=== PATIENT | female | born 1985 | race Two or more races ===

== ENCOUNTER 2019-03-09 10:47 | Emergency (ER) | payer BC ==
[2019-03-09] MEDS ORDERED: Sodium Chloride 0.9% 10 ML Syringe FLUSH PRN (11:19)
[2019-03-09] MEDS ORDERED: Ondansetron 4 MG/2 ML SDV IVPUSH ONE (11:20)
[2019-03-09] MEDS ORDERED: diphenhydrAMINE 50 MG/ML SDV IVPUSH ONE (11:20)
[2019-03-09] MEDS ORDERED: Dexamethasone 4 MG/ML SDV IVPUSH ONE (11:20)
[2019-03-09] MEDS ORDERED: Ketorolac 30 MG/ML SDV IVPUSH ONE (11:20)
--- NOTE | 2019-03-09 12:00 | EDM.PDOC ---
ED HPI GENERAL MEDICAL PROBLEM - General Chief Complaint: Headache Stated Complaint: MIGRAINE X 3 DAYS Time Seen by Provider: 03/09/19 11:09 Source of Information: Reports: Patient History Limitations: Reports: No Limitations - History of Present Illness INITIAL COMMENTS - FREE TEXT/NARRATIVE: The patient presents with a headache. She has a history of migraines. She tried maxolt and fiorocet and that did not help. She has no numbness or weakness. She has nausea and vomiting. This has been going on for about 3 days. The pain is on right right side of her head. Onset: Gradual Duration: Day(s): (3) Location: Reports: Head Quality: Reports: Sharp Severity: Moderate Improves with: Reports: None Worsens with: Reports: None Associated Symptoms: Reports: Headaches, Nausea/Vomiting. Denies: Chest Pain, Cough, Fever/Chills, Shortness of Breath Right Temporal Headache Pain Score (Numeric/FACES): 8 - Related Data Allergies Allergy/AdvReac Type Severity Reaction Status Date / Time fentanyl Allergy Chest Pain Verified 03/09/19 10:58 levofloxacin [From Levaquin] Allergy Hives Verified 03/09/19 10:58 metoclopramide [From Reglan] Allergy Anxiety Verified 03/09/19 10:58 morphine Allergy Headache Verified 03/09/19 10:58 promethazine [From Phenergan] Allergy Anxiety Verified 03/09/19 10:58 sumatriptan [From Imitrex] Allergy Chest Pain Verified 03/09/19 10:58 topiramate [From Topamax] Allergy Fainting Verified 03/09/19 10:58 Home Meds: Home Meds Acetaminophen/Butalbital/Caff [Fioricet 325-50-40 MG] 1 tab PO ASDIRECTED PRN [History] FLUoxetine [PROzac] 20 mg PO DAILY 06/13/18 [History] Magnesium Oxide [Magnesium] 1,000 mg PO DAILY 06/13/18 [History] Multivitamin [Multi-Day Vitamins] 1 tab PO DAILY 06/13/18 [History] Naproxen Sodium 600 mg PO ASDIRECTED 06/13/18 [History] Rizatriptan Benzoate [Rizatriptan] 10 mg PO ASDIRECTED PRN 06/13/18 [History] hydrOXYzine HCl [Atarax] 25 mg PO ASDIRECTED PRN 06/13/18 [History] Past Medical History HEENT History: Reports: None Cardiovascular History: Reports: None Respiratory History: Reports: None Gastrointestinal History: Reports: None Genitourinary History: Reports: Other (See Below) Other Genitourinary History: chronic ovarian cysts 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 Musculoskeletal History: Reports: None Neurological History: Reports: Migraines Psychiatric History: Reports: Depression Endocrine/Metabolic History: Reports: None Hematologic History: Reports: Anemia Immunologic History: Reports: None Oncologic (Cancer) History: Reports: None Dermatologic History: Reports: None - Infectious Disease History Infectious Disease History: Reports: None - Past Surgical History Head Surgeries/Procedures: Reports: None GI Surgical History: Reports: Other (See Below) Other GI Surgeries/Procedures: laparoscopy Female Surgical History: Reports: Other (See Below) Other Female Surgeries/Procedures: ovarian cysts, PMDD Social & Family History - Family History Family Medical History: Noncontributory - Tobacco Use Smoking Status *Q: Never Smoker - Caffeine Use Caffeine Use: Reports: Coffee, Soda - Recreational Drug Use Recreational Drug Use: No ED ROS GENERAL - Review of Systems Review Of Systems: See Below Constitutional: Reports: No Symptoms HEENT: Reports: No Symptoms Respiratory: Reports: No Symptoms Cardiovascular: Reports: No Symptoms Endocrine: Reports: No Symptoms GI/Abdominal: Reports: Nausea, Vomiting : Reports: No Symptoms Musculoskeletal: Reports: No Symptoms Skin: Reports: No Symptoms Neurological: Reports: Headache - Physical Exam Exam: See Below Exam Limited By: No Limitations General Appearance: Alert, No Apparent Distress Ears: Normal External Exam Nose: Normal Inspection Head Exam: Atraumatic, Normocephalic Neck: Normal Inspection Respiratory/Chest: No Respiratory Distress, Lungs Clear, Normal Breath Sounds Cardiovascular: Regular Rate, Rhythm, No Edema, No Murmur GI/Abdominal: Soft, Non-Tender, No Organomegaly, No Mass Neuro Exam (Abbreviated): Alert, Oriented, No Motor/Sensory Deficits Back Exam: Normal Inspection Extremities: Normal Inspection Course - Vital Signs Last Recorded V/S: Last Vital Signs Temp 98.1 F 03/09/19 10:54 Pulse 81 03/09/19 10:54 Resp 16 03/09/19 10:54 BP Pulse Ox 97 03/09/19 10:54 - Orders/Labs/Meds Orders: Active Orders 24 hr Category Date Time Status Peripheral IV Care [RC] . DIRECTED Care 03/09/19 11:19 Active Sodium Chloride 0.9% [Saline Flush] Med 03/09/19 11:19 Active 10 ml FLUSH ASDIRECTED PRN Peripheral IV Insertion Adult [OM.PC] Routine Oth 03/09/19 11:19 Ordered Medication Orders Sodium Chloride (Saline Flush) 10 ml FLUSH ASDIRECTED PRN PRN Reason: Keep Vein Open Last Admin: 03/09/19 11:30 Dose: 10 ml Meds: Medications Generic Name Dose Route Start Last Admin Trade Name Freq PRN Reason Stop Dose Admin Sodium Chloride 10 ml 03/09/19 11:19 03/09/19 11:30 Saline Flush FLUSH 10 ml ASDIRECTED PRN Administration Keep Vein Open Discontinued Medications Generic Name Dose Route Start Last Admin Trade Name Freq PRN Reason Stop Dose Admin Dexamethasone 4 mg 03/09/19 11:20 03/09/19 11:37 Dexamethasone IVPUSH 03/09/19 11:21 4 mg ONETIME ONE Administration Diphenhydramine HCl 50 mg 03/09/19 11:20 03/09/19 11:35 Benadryl IVPUSH 03/09/19 11:21 50 mg ONETIME ONE Administration Ketorolac Tromethamine 30 mg 03/09/19 11:20 03/09/19 11:33 Toradol IVPUSH 03/09/19 11:21 30 mg ONETIME ONE Administration Ondansetron HCl 4 mg 03/09/19 11:20 03/09/19 11:31 Zofran IVPUSH 03/09/19 11:21 4 mg ONETIME ONE Administration - Re-Assessments/Exams Free Text/Narrative Re-Assessment/Exam: 03/09/19 12:01 I ordered an IV saline lock, toradol 30mg IV, benadryl 50mg IV, zofran 4mg IV and decadron 4mg IV. 03/09/19 12:47 She is feeling much better and would like to go now. I will discharge her home. Departure - Departure Time of Disposition: 12:50 Disposition: Home, Self-Care 01 Condition: Good Clinical Impression: Migraine - Discharge Information *PRESCRIPTION DRUG MONITORING PROGRAM REVIEWED*: No *COPY OF PRESCRIPTION DRUG MONITORING REPORT IN PATIENT OLIVA: No Referrals: Xavier Anderson MD [Primary Care Provider] - Forms: ED Department Discharge Additional Instructions: Go home and rest and return if you are worse. - My Orders Last 24 Hours: My Active Orders 03/09/19 11:19 Peripheral IV Care [RC] . DIRECTED Sodium Chloride 0.9% [Saline Flush] 10 ml FLUSH ASDIRECTED PRN Peripheral IV Insertion Adult [OM.PC] Routine - Assessment/Plan Last 24 Hours: My Active Orders 03/09/19 11:19 Peripheral IV Care [RC] . DIRECTED Sodium Chloride 0.9% [Saline Flush] 10 ml FLUSH ASDIRECTED PRN Peripheral IV Insertion Adult [OM.PC] Routine
== END 2019-03-09 13:05 | disposition home or self-care (01) ==
LOC: JD.ED 10:47
DX: G43.909 Migraine, unspecified, not intractable, without status migrainosus (principal); F32.9 Major depressive disorder, single episode, unspecified; Z88.1 Allergy status to other antibiotic agents; Z88.5 Allergy status to narcotic agent; Z88.8 Allergy status to other drugs, medicaments and biological substances; Z79.899 Other long term (current) drug therapy
CPT/HCPCS: 96374; 96375; 99283; J1100; J1200; J1885; J2405; 99284

== ENCOUNTER 2019-03-17 09:50 | Emergency (ER) | payer BC, MEDICARE ==
[2019-03-17] MEDS ORDERED: Sodium Chloride 0.9% 10 ML Syringe FLUSH PRN (10:47)
[2019-03-17] MEDS ORDERED: Sodium Chloride 0.9% 1,000 ML IV ONE (10:47)
[2019-03-17] MEDS ORDERED: Dexamethasone 4 MG/ML SDV IVPUSH ONE (10:47)
[2019-03-17] MEDS ORDERED: Ketorolac 30 MG/ML SDV IVPUSH ONE (10:48)
[2019-03-17] MEDS ORDERED: diphenhydrAMINE 50 MG/ML SDV IVPUSH ONE (10:48)
[2019-03-17] MEDS ORDERED: Ondansetron 4 MG/2 ML SDV IVPUSH ONE (10:48)
--- NOTE | 2019-03-17 12:45 | EDM.PDOC ---
ED HPI GENERAL MEDICAL PROBLEM - General Chief Complaint: Headache Stated Complaint: HEADACHE Time Seen by Provider: 03/17/19 10:36 Source of Information: Reports: Patient History Limitations: Reports: No Limitations - History of Present Illness INITIAL COMMENTS - FREE TEXT/NARRATIVE: The patient presents with a migraine headache. She has a history of them. She was seen here over a week ago and was given medications for it. The pain never really went away. She says the past couple days the pain got worse. She has no numbness or weakness. Onset: Gradual Duration: Day(s): Location: Reports: Head Quality: Reports: Ache Severity: Severe Improves with: Reports: None Worsens with: Reports: None Associated Symptoms: Reports: Headaches, Nausea/Vomiting. Denies: Chest Pain, Cough, Fever/Chills, Shortness of Breath - Related Data Allergies Allergy/AdvReac Type Severity Reaction Status Date / Time fentanyl Allergy Chest Pain Verified 03/09/19 10:58 levofloxacin [From Levaquin] Allergy Hives Verified 03/09/19 10:58 metoclopramide [From Reglan] Allergy Anxiety Verified 03/09/19 10:58 morphine Allergy Headache Verified 03/09/19 10:58 promethazine [From Phenergan] Allergy Anxiety Verified 03/09/19 10:58 sumatriptan [From Imitrex] Allergy Chest Pain Verified 03/09/19 10:58 topiramate [From Topamax] Allergy Fainting Verified 03/09/19 10:58 Home Meds: Home Meds Acetaminophen/Butalbital/Caff [Fioricet 325-50-40 MG] 1 tab PO ASDIRECTED PRN [History] FLUoxetine [PROzac] 20 mg PO DAILY 06/13/18 [History] Magnesium Oxide [Magnesium] 1,000 mg PO DAILY 06/13/18 [History] Multivitamin [Multi-Day Vitamins] 1 tab PO DAILY 06/13/18 [History] Naproxen Sodium 600 mg PO ASDIRECTED 06/13/18 [History] Rizatriptan Benzoate [Rizatriptan] 10 mg PO ASDIRECTED PRN 06/13/18 [History] hydrOXYzine HCl [Atarax] 25 mg PO ASDIRECTED PRN 06/13/18 [History] Past Medical History HEENT History: Reports: None Cardiovascular History: Reports: None Respiratory History: Reports: None Gastrointestinal History: Reports: None Genitourinary History: Reports: Other (See Below) Other Genitourinary History: chronic ovarian cysts [employer]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 Musculoskeletal History: Reports: None Neurological History: Reports: Migraines Psychiatric History: Reports: Depression Endocrine/Metabolic History: Reports: None Hematologic History: Reports: Anemia Immunologic History: Reports: None Oncologic (Cancer) History: Reports: None Dermatologic History: Reports: None - Infectious Disease History Infectious Disease History: Reports: None - Past Surgical History Head Surgeries/Procedures: Reports: None GI Surgical History: Reports: Other (See Below) Other GI Surgeries/Procedures: laparoscopy Female Surgical History: Reports: Other (See Below) Other Female Surgeries/Procedures: ovarian cysts, PMDD Social & Family History - Family History Family Medical History: Noncontributory - Tobacco Use Smoking Status *Q: Never Smoker - Caffeine Use Caffeine Use: Reports: None - Recreational Drug Use Recreational Drug Use: No ED ROS GENERAL - Review of Systems Review Of Systems: See Below Constitutional: Reports: No Symptoms HEENT: Reports: No Symptoms Respiratory: Reports: No Symptoms Cardiovascular: Reports: No Symptoms Endocrine: Reports: No Symptoms GI/Abdominal: Reports: No Symptoms : Reports: No Symptoms Musculoskeletal: Reports: No Symptoms Skin: Reports: No Symptoms Neurological: Reports: Headache - Physical Exam Exam: See Below Exam Limited By: No Limitations General Appearance: Alert, No Apparent Distress Ears: Normal External Exam Nose: Normal Inspection Head Exam: Atraumatic, Normocephalic Neck: Normal Inspection Respiratory/Chest: No Respiratory Distress, Lungs Clear, Normal Breath Sounds Cardiovascular: Regular Rate, Rhythm, No Edema, No Murmur GI/Abdominal: Soft, Non-Tender, No Organomegaly, No Mass Rectal (Female) Exam: Normal Exam Neuro Exam (Abbreviated): Alert, Oriented, No Motor/Sensory Deficits Course - Vital Signs Last Recorded V/S: Last Vital Signs Temp 98.4 F 03/17/19 10:45 Pulse 76 03/17/19 10:45 Resp 16 03/17/19 10:45 BP 130/87 03/17/19 10:45 Pulse Ox 100 03/17/19 10:45 - Orders/Labs/Meds Orders: Active Orders 24 hr Category Date Time Status Peripheral IV Care [RC] . DIRECTED Care 03/17/19 10:47 Active Sodium Chloride 0.9% [Saline Flush] Med 03/17/19 10:47 Active 10 ml FLUSH ASDIRECTED PRN Peripheral IV Insertion Adult [OM.PC] Routine Oth 03/17/19 10:47 Ordered Medication Orders Sodium Chloride (Saline Flush) 10 ml FLUSH ASDIRECTED PRN PRN Reason: Keep Vein Open Last Admin: 03/17/19 11:02 Dose: 10 ml Meds: Medications Generic Name Dose Route Start Last Admin Trade Name Freq PRN Reason Stop Dose Admin Sodium Chloride 10 ml 03/17/19 10:47 03/17/19 11:02 Saline Flush FLUSH 10 ml ASDIRECTED PRN Administration Keep Vein Open Discontinued Medications Generic Name Dose Route Start Last Admin Trade Name Freq PRN Reason Stop Dose Admin Dexamethasone 4 mg 03/17/19 10:47 03/17/19 11:04 Dexamethasone IVPUSH 03/17/19 10:48 4 mg ONETIME ONE Administration Diphenhydramine HCl 50 mg 03/17/19 10:48 03/17/19 11:03 Benadryl IVPUSH 03/17/19 10:49 50 mg ONETIME ONE Administration Sodium Chloride 1,000 mls @ 1,000 mls/hr 03/17/19 10:47 03/17/19 11:01 Normal Saline IV 03/17/19 11:46 1,000 mls/hr ONETIME ONE Administration Ketorolac Tromethamine 30 mg 03/17/19 10:48 03/17/19 11:03 Toradol IVPUSH 03/17/19 10:49 30 mg ONETIME ONE Administration Ondansetron HCl 4 mg 03/17/19 10:48 03/17/19 11:06 Zofran IVPUSH 03/17/19 10:49 4 mg ONETIME ONE Administration - Re-Assessments/Exams Free Text/Narrative Re-Assessment/Exam: 03/17/19 12:48 I ordered an IV NS 1L bolus, decadron 4mg IV, toradol 30mg IV, benadryl 50mg IV , and zofran 4mg IV. She feels better. I will discharge her home. Departure - Departure Time of Disposition: 12:48 Disposition: Home, Self-Care 01 Condition: Good Clinical Impression: Migraine - Discharge Information *PRESCRIPTION DRUG MONITORING PROGRAM REVIEWED*: No *COPY OF PRESCRIPTION DRUG MONITORING REPORT IN PATIENT OLIVA: No Referrals: PCP,Not In Area [Primary Care Provider] - Forms: ED Department Discharge Additional Instructions: Go home and rest. Please return if you are worse. - My Orders Last 24 Hours: My Active Orders 03/17/19 10:47 Peripheral IV Care [RC] . DIRECTED Sodium Chloride 0.9% [Saline Flush] 10 ml FLUSH ASDIRECTED PRN Peripheral IV Insertion Adult [OM.PC] Routine - Assessment/Plan Last 24 Hours: My Active Orders 03/17/19 10:47 Peripheral IV Care [RC] . DIRECTED Sodium Chloride 0.9% [Saline Flush] 10 ml FLUSH ASDIRECTED PRN Peripheral IV Insertion Adult [OM.PC] Routine
== END 2019-03-17 13:15 | disposition home or self-care (01) ==
LOC: JD.ED 09:50
DX: G43.909 Migraine, unspecified, not intractable, without status migrainosus (principal); F32.9 Major depressive disorder, single episode, unspecified; Z79.899 Other long term (current) drug therapy; Z88.5 Allergy status to narcotic agent; Z88.1 Allergy status to other antibiotic agents; Z88.8 Allergy status to other drugs, medicaments and biological substances
CPT/HCPCS: 96361; 96374; 96375; 99283; J1100; J1200; J1885; J2405; J7040

== ENCOUNTER 2019-04-12 03:09 | Emergency (ER) | payer BC, MEDICARE ==
[2019-04-12] MEDS ORDERED: diphenhydrAMINE 50 MG/ML SDV IVPUSH ONE (07:25)
[2019-04-12] MEDS ORDERED: Sodium Chloride 0.9% 10 ML Syringe FLUSH PRN (07:26)
[2019-04-12] MEDS ORDERED: Dexamethasone 4 MG/ML SDV IVPUSH ONE (07:29)
[2019-04-12] MEDS ORDERED: Ketorolac 30 MG/ML SDV IVPUSH SCH (07:30)
[2019-04-12] MEDS ORDERED: Sodium Chloride 0.9% 1,000 ML IV SCH (07:30)
--- NOTE | 2019-04-12 09:08 | EDM.PDOC ---
ED HPI GENERAL MEDICAL PROBLEM - General Chief Complaint: Headache Stated Complaint: HEADACHE Time Seen by Provider: 04/12/19 07:25 Source of Information: Reports: Patient, RN Notes Reviewed - History of Present Illness INITIAL COMMENTS - FREE TEXT/NARRATIVE: 34 year old female with onset of Johnson about 5 days ago. It was better for a couple of days and than became much worse last evening and during the night. The Johnson is bilat, throbbing with some nausea, not actively vomiting at time of eval. She does have hx of migraines, this is similar. He own meds are not giving her meaningful relief. Left Temporal Headache Pain Score (Numeric/FACES): 8 - Related Data Allergies Allergy/AdvReac Type Severity Reaction Status Date / Time fentanyl Allergy Chest Pain Verified 04/12/19 05:19 levofloxacin [From Levaquin] Allergy Hives Verified 04/12/19 05:19 metoclopramide [From Reglan] Allergy Anxiety Verified 04/12/19 05:19 morphine Allergy Headache Verified 04/12/19 05:19 promethazine [From Phenergan] Allergy Anxiety Verified 04/12/19 05:19 sumatriptan [From Imitrex] Allergy Chest Pain Verified 04/12/19 05:19 topiramate [From Topamax] Allergy Fainting Verified 04/12/19 05:19 Home Meds: Home Meds Acetaminophen/Butalbital/Caff [Fioricet 325-50-40 MG] 1 tab PO ASDIRECTED PRN [History] FLUoxetine [PROzac] 20 mg PO DAILY 06/13/18 [History] Magnesium Oxide [Magnesium] 1,000 mg PO DAILY 06/13/18 [History] Multivitamin [Multi-Day Vitamins] 1 tab PO DAILY 06/13/18 [History] Naproxen Sodium 600 mg PO ASDIRECTED 06/13/18 [History] Rizatriptan Benzoate [Rizatriptan] 10 mg PO ASDIRECTED PRN 06/13/18 [History] hydrOXYzine HCl [Atarax] 25 mg PO ASDIRECTED PRN 06/13/18 [History] Past Medical History HEENT History: Reports: None Cardiovascular History: Reports: None Respiratory History: Reports: None Gastrointestinal History: Reports: None Genitourinary History: Reports: Other (See Below) Other Genitourinary History: chronic ovarian cysts 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 Musculoskeletal History: Reports: None Neurological History: Reports: Migraines Psychiatric History: Reports: Depression Endocrine/Metabolic History: Reports: None Hematologic History: Reports: Anemia Immunologic History: Reports: None Oncologic (Cancer) History: Reports: None Dermatologic History: Reports: None - Infectious Disease History Infectious Disease History: Reports: None - Past Surgical History Head Surgeries/Procedures: Reports: None GI Surgical History: Reports: Other (See Below) Other GI Surgeries/Procedures: laparoscopy Female Surgical History: Reports: Other (See Below) Other Female Surgeries/Procedures: ovarian cysts, PMDD Social & Family History - Family History Family Medical History: Noncontributory - Tobacco Use Smoking Status *Q: Never Smoker - Caffeine Use Caffeine Use: Reports: None - Recreational Drug Use Recreational Drug Use: No ED ROS GENERAL - Review of Systems Review Of Systems: See Below Constitutional: Denies: Fever, Chills HEENT: Denies: Rhinitis, Sinus Problem, Throat Pain Respiratory: Denies: Shortness of Breath Cardiovascular: Denies: Chest Pain GI/Abdominal: Reports: Decreased Appetite, Nausea. Denies: Abdominal Pain Musculoskeletal: Reports: Neck Pain (mild) Neurological: Reports: Headache. Denies: Numbness, Tingling, Trouble Speaking, Difficulty Walking, Weakness - Physical Exam Exam: See Below General Appearance: Alert, Moderate Distress Eye Exam: Bilateral Eye: PERRL Throat/Mouth: Normal Inspection, Normal Oropharynx Head Exam: Atraumatic. No: Facial Swelling Neck: Supple, Full Range of Motion Respiratory/Chest: No Respiratory Distress, Lungs Clear, Normal Breath Sounds Cardiovascular: Regular Rate, Rhythm GI/Abdominal: Soft, Non-Tender Neuro Exam (Abbreviated): Alert, Oriented, No Motor/Sensory Deficits Extremities: Normal Inspection, Normal Range of Motion Skin Exam: Warm, Dry, Normal Color Course - Vital Signs Last Recorded V/S: Last Vital Signs Temp 98.5 F 04/12/19 07:58 Pulse 90 04/12/19 09:00 Resp 16 04/12/19 09:00 BP 109/72 04/12/19 09:00 Pulse Ox 99 04/12/19 09:00 - Orders/Labs/Meds Orders: Active Orders 24 hr Category Date Time Status Peripheral IV Care [RC] . DIRECTED Care 04/12/19 07:28 Active Peripheral IV Insertion Adult [OM.PC] Stat Oth 04/12/19 07:25 Ordered Meds: Medications Discontinued Medications Generic Name Dose Route Start Last Admin Trade Name Yirs PRN Reason Stop Dose Admin Dexamethasone 8 mg 04/12/19 07:29 04/12/19 07:50 Dexamethasone IVPUSH 04/12/19 07:30 8 mg ONETIME ONE Administration Diphenhydramine HCl 50 mg 04/12/19 07:25 04/12/19 07:45 Benadryl IVPUSH 04/12/19 07:26 50 mg ONETIME ONE Administration Sodium Chloride 1,000 mls @ 999 mls/hr 04/12/19 07:30 04/12/19 07:49 Normal Saline IV 999 mls/hr ONETIME KIERRA Administration Ketorolac Tromethamine 30 mg 04/12/19 07:30 04/12/19 07:47 Toradol IVPUSH 30 mg ONETIME KIERRA Administration Sodium Chloride 10 ml 04/12/19 07:26 04/12/19 07:45 Saline Flush FLUSH 10 ml ASDIRECTED PRN Administration Keep Vein Open - Re-Assessments/Exams Free Text/Narrative Re-Assessment/Exam: 04/12/19 11:06 Pt and moderate relief from IV fluid and meds given, offered further treatment but patient wants to go home and work with her own meds. Comfortable to go home at time of discharge. Departure - Departure Time of Disposition: 09:06 Disposition: Home, Self-Care 01 Condition: Fair Clinical Impression: Migraine - Discharge Information Instructions: Migraine Headache, [id number] Referrals: PCP,Not In Area [Primary Care Provider] - Forms: ED Department Discharge Additional Instructions: Rest, you have been given sedating medication while here in the ED so do not drive for the next 8 to 10 hours. Continue your current meds as prescribed. Follow up clinic as needed, return to ED as needed. - My Orders Last 24 Hours: My Active Orders 04/12/19 07:25 Peripheral IV Insertion Adult [OM.PC] Stat 04/12/19 07:28 Peripheral IV Care [RC] . DIRECTED - Assessment/Plan Last 24 Hours: My Active Orders 04/12/19 07:25 Peripheral IV Insertion Adult [OM.PC] Stat 04/12/19 07:28 Peripheral IV Care [RC] . DIRECTED
== END 2019-04-12 09:15 | disposition home or self-care (01) ==
LOC: JD.ED 03:09
DX: G43.909 Migraine, unspecified, not intractable, without status migrainosus (principal); F32.9 Major depressive disorder, single episode, unspecified; Z88.5 Allergy status to narcotic agent; Z88.8 Allergy status to other drugs, medicaments and biological substances; Z88.1 Allergy status to other antibiotic agents; Z79.899 Other long term (current) drug therapy
CPT/HCPCS: 96361; 96374; 96375; 99283; J1100; J1200; J1885; J7040

== ENCOUNTER 2019-08-22 10:46 | Emergency (ER) | payer BC, MEDICARE ==
[2019-08-22] MEDS ORDERED: Dexamethasone 4 MG/ML SDV IVPUSH ONE (11:04)
[2019-08-22] MEDS ORDERED: Sodium Chloride 0.9% 10 ML Syringe FLUSH PRN (11:04)
[2019-08-22] MEDS ORDERED: Ondansetron 4 MG/2 ML SDV IVPUSH ONE (11:04)
[2019-08-22] MEDS ORDERED: Ketorolac 30 MG/ML SDV IVPUSH ONE (11:05)
[2019-08-22] MEDS ORDERED: Sodium Chloride 0.9% 1,000 ML IV ONE (11:28)
--- NOTE | 2019-08-22 11:29 | EDM.PDOC ---
ED HPI GENERAL MEDICAL PROBLEM - General Chief Complaint: Headache Stated Complaint: MIGRAINE Time Seen by Provider: 08/22/19 10:59 Source of Information: Reports: Patient History Limitations: Reports: No Limitations - History of Present Illness INITIAL COMMENTS - FREE TEXT/NARRATIVE: The patient presents with a migraine. She has a history of migraines. She woke up with this on . She tried her maxzolt and fioricet with codeine. It did not help. She has photophobia, nausea and vomiting. She has no numbness or weakness. She has no fever or chills. Onset: Gradual Duration: Day(s): (Since ) Location: Reports: Head Quality: Reports: Sharp Severity: Severe Improves with: Reports: None Worsens with: Reports: None Associated Symptoms: Reports: Headaches, Nausea/Vomiting. Denies: Chest Pain, Cough, Fever/Chills, Shortness of Breath Right Headache Pain Score (Numeric/FACES): 7 - Related Data Allergies Allergy/AdvReac Type Severity Reaction Status Date / Time fentanyl Allergy Chest Pain Verified 08/22/19 11:14 levofloxacin [From Levaquin] Allergy Hives Verified 08/22/19 11:14 metoclopramide [From Reglan] Allergy Anxiety Verified 08/22/19 11:14 morphine Allergy Headache Verified 08/22/19 11:14 promethazine [From Phenergan] Allergy Anxiety Verified 08/22/19 11:14 sumatriptan [From Imitrex] Allergy Chest Pain Verified 08/22/19 11:14 topiramate [From Topamax] Allergy Fainting Verified 08/22/19 11:14 Home Meds: Home Meds Magnesium Oxide [Magnesium] 500 mg PO DAILY 06/13/18 [History] Multivitamin [Multi-Day Vitamins] 1 tab PO DAILY 06/13/18 [History] Naproxen Sodium 600 mg PO ASDIRECTED 06/13/18 [History] Rizatriptan Benzoate [Rizatriptan] 10 mg PO ASDIRECTED PRN 06/13/18 [History] hydrOXYzine HCL [Atarax] 25 mg PO ASDIRECTED PRN 06/13/18 [History] DULoxetine [Cymbalta] 30 mg PO DAILY 05/08/19 [History] Propranolol [Inderal LA] 60 mg PO DAILY 05/08/19 [History] tiZANidine [Zanaflex] 4 mg PO BEDTIME 05/08/19 [History] Past Medical History HEENT History: Reports: None Other HEENT History: wears eyeglasses. Caps to front teeth. 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 No endometriosis was found. Musculoskeletal History: Reports: None Neurological History: Reports: Migraines Psychiatric History: Reports: Depression Endocrine/Metabolic History: Reports: None Hematologic History: Reports: Anemia Immunologic History: Reports: None Oncologic (Cancer) History: Reports: None Dermatologic History: Reports: None - Infectious Disease History Infectious Disease History: Reports: None - Past Surgical History Head Surgeries/Procedures: Reports: None GI Surgical History: Reports: Other (See Below) Other GI Surgeries/Procedures: laparoscopy Female Surgical History: Reports: Other (See Below) Other Female Surgeries/Procedures: ovarian cysts, PMDD Social & Family History - Family History Family Medical History: Noncontributory - Tobacco Use Smoking Status *Q: Never Smoker - Caffeine Use Caffeine Use: Reports: Coffee - Living Situation & Occupation Living situation: Reports: Occupation: Unemployed ED ROS GENERAL - Review of Systems Review Of Systems: See Below Constitutional: Reports: No Symptoms HEENT: Reports: No Symptoms Respiratory: Reports: No Symptoms Cardiovascular: Reports: No Symptoms Endocrine: Reports: No Symptoms GI/Abdominal: Reports: Nausea, Vomiting. Denies: Abdominal Pain : Reports: No Symptoms Musculoskeletal: Reports: No Symptoms - Physical Exam Exam: See Below Exam Limited By: No Limitations General Appearance: Alert, No Apparent Distress Ears: Normal External Exam Throat/Mouth: Normal Inspection Head Exam: Atraumatic, Normocephalic Neck: Normal Inspection, Supple, Non-Tender Respiratory/Chest: No Respiratory Distress, Lungs Clear, Normal Breath Sounds Cardiovascular: Regular Rate, Rhythm, No Edema, No Murmur GI/Abdominal: Soft, Non-Tender, No Organomegaly, No Mass Neuro Exam (Abbreviated): Alert, Oriented, No Motor/Sensory Deficits Back Exam: Normal Inspection Extremities: Normal Inspection Course - Vital Signs Last Recorded V/S: Last Vital Signs Temp 97.2 F 08/22/19 10:59 Pulse 76 08/22/19 10:59 Resp 18 08/22/19 10:59 BP 121/81 08/22/19 10:59 Pulse Ox 96 08/22/19 10:59 - Orders/Labs/Meds Orders: Active Orders 24 hr Category Date Time Status Peripheral IV Care [RC] . DIRECTED Care 08/22/19 11:04 Active Sodium Chloride 0.9% [Normal Saline] 1,000 ml Med 08/22/19 11:28 Active IV ONETIME Sodium Chloride 0.9% [Saline Flush] Med 08/22/19 11:04 Active 10 ml FLUSH ASDIRECTED PRN Peripheral IV Insertion Adult [OM.PC] Routine Oth 08/22/19 11:04 Ordered Medication Orders Sodium Chloride (Normal Saline) 1,000 mls @ 1,000 mls/hr IV ONETIME ONE Stop: 08/22/19 12:27 Last Admin: 08/22/19 11:35 Dose: 1,000 mls/hr Sodium Chloride (Saline Flush) 10 ml FLUSH ASDIRECTED PRN PRN Reason: Keep Vein Open Last Admin: 08/22/19 11:17 Dose: 10 ml Meds: Medications Generic Name Dose Route Start Last Admin Trade Name Freq PRN Reason Stop Dose Admin Sodium Chloride 1,000 mls @ 1,000 mls/hr 08/22/19 11:28 08/22/19 11:35 Normal Saline IV 08/22/19 12:27 1,000 mls/hr ONETIME ONE Administration Sodium Chloride 10 ml 08/22/19 11:04 08/22/19 11:17 Saline Flush FLUSH 10 ml ASDIRECTED PRN Administration Keep Vein Open Discontinued Medications Generic Name Dose Route Start Last Admin Trade Name Freq PRN Reason Stop Dose Admin Dexamethasone 4 mg 08/22/19 11:04 08/22/19 11:16 Dexamethasone IVPUSH 08/22/19 11:05 4 mg ONETIME ONE Administration Ketorolac Tromethamine 30 mg 08/22/19 11:05 08/22/19 11:16 Toradol IVPUSH 08/22/19 11:06 30 mg ONETIME ONE Administration Ondansetron HCl 4 mg 08/22/19 11:04 08/22/19 11:17 Zofran IVPUSH 08/22/19 11:05 4 mg ONETIME ONE Administration - Re-Assessments/Exams Free Text/Narrative Re-Assessment/Exam: 08/22/19 11:56 I have ordered an IV NS 1L bolus, zofran 4mg IV, decadron 4mg IV, and toradol 30mg IV. 08/22/19 12:09 She is feeling much better. I will discharge her home. Departure - Departure Time of Disposition: 12:15 Disposition: Home, Self-Care 01 Condition: Good Clinical Impression: Migraine - Discharge Information *PRESCRIPTION DRUG MONITORING PROGRAM REVIEWED*: Not Applicable *COPY OF PRESCRIPTION DRUG MONITORING REPORT IN PATIENT OLIVA: Not Applicable Referrals: Bernie Catalan PA-C [Primary Care Provider] - Forms: ED Department Discharge Additional Instructions: Go home and rest in a quiet dark room. Please return if you are worse. Sepsis Event Note - Evaluation Sepsis Screening Result: No Definite Risk - Focused Exam Vital Signs: Vital Signs Temp Pulse Resp BP Pulse Ox 08/22/19 10:59 97.2 F 76 18 121/81 96 Date Exam was Performed: 08/22/19 Time Exam was Performed: 12:09 - My Orders Last 24 Hours: My Active Orders 08/22/19 11:04 Peripheral IV Care [RC] . DIRECTED Sodium Chloride 0.9% [Saline Flush] 10 ml FLUSH ASDIRECTED PRN Peripheral IV Insertion Adult [OM.PC] Routine 08/22/19 11:28 Sodium Chloride 0.9% [Normal Saline] 1,000 ml IV ONETIME - Assessment/Plan Last 24 Hours: My Active Orders 08/22/19 11:04 Peripheral IV Care [RC] . DIRECTED Sodium Chloride 0.9% [Saline Flush] 10 ml FLUSH ASDIRECTED PRN Peripheral IV Insertion Adult [OM.PC] Routine 08/22/19 11:28 Sodium Chloride 0.9% [Normal Saline] 1,000 ml IV ONETIME
== END 2019-08-22 12:20 | disposition home or self-care (01) ==
LOC: JD.ED 10:46
DX: G43.909 Migraine, unspecified, not intractable, without status migrainosus (principal); F32.9 Major depressive disorder, single episode, unspecified; Z88.1 Allergy status to other antibiotic agents; Z88.8 Allergy status to other drugs, medicaments and biological substances; Z79.899 Other long term (current) drug therapy
CPT/HCPCS: 96361; 96374; 96375; 99283; J1100; J1885; J2405; J7030

== ENCOUNTER 2019-12-16 18:21 | Emergency (ER) | payer BC, MEDICARE ==
[2019-12-16] MEDS: Sodium Chloride 0.9% 10 ML Syringe FLUSH PRN ×2 (18:45→19:45)
[2019-12-16] MEDS ORDERED: Sodium Chloride 0.9% 1,000 ML IV ONE (18:47)
[2019-12-16] MEDS ORDERED: Ketorolac 30 MG/ML SDV IVPUSH ONE (18:47)
[2019-12-16] MEDS ORDERED: diphenhydrAMINE 50 MG/ML SDV IVPUSH ONE (18:47)
[2019-12-16] MEDS ORDERED: Ondansetron 4 MG/2 ML SDV IVPUSH ONE (18:48)
[2019-12-16] MEDS ORDERED: Dexamethasone 10 MG/ML SDV IM ONE (18:48)
[2019-12-16] MEDS ORDERED: Dexamethasone 10 MG/ML SDV IVPUSH ONE (18:48)
--- NOTE | 2019-12-16 18:59 | EDM.PDOC ---
ED HPI GENERAL MEDICAL PROBLEM - General Chief Complaint: Headache Stated Complaint: MIGRAINE Time Seen by Provider: 12/16/19 18:32 Source of Information: Reports: Patient, RN Notes Reviewed History Limitations: Reports: No Limitations - History of Present Illness INITIAL COMMENTS - FREE TEXT/NARRATIVE: Patient is a 34-year-old female who presents to the ED for evaluation of her migraine headache. Patient notes that this headache started yesterday, is very typical for her migraines, but seems to be a little bit worse than normal. She did report that she was standing on her child stepstool when it gave way from underneath of her, and she ended up striking the left side of her head on a table, she states that this is where the pain is mostly at. She is not complaining of any blurred vision or double vision, she is having some light sensitivity like she normally does with her migraines. She did take her home migraine medication, this did not seem to relieve much at all. She is having nausea without vomiting, and she denies any other sick-like symptoms, fever/chills, cough/shortness of breath. Left Headache Pain Score (Numeric/FACES): 10 - Related Data Allergies Allergy/AdvReac Type Severity Reaction Status Date / Time fentanyl Allergy Severe Chest Pain Verified 12/16/19 18:36 levofloxacin [From Levaquin] Allergy Severe Hives Verified 12/16/19 18:36 metoclopramide [From Reglan] Allergy Severe Anxiety Verified 12/16/19 18:36 morphine Allergy Severe Headache Verified 12/16/19 18:36 promethazine [From Phenergan] Allergy Severe Anxiety Verified 12/16/19 18:36 sumatriptan [From Imitrex] Allergy Severe Chest Pain Verified 12/16/19 18:36 topiramate [From Topamax] Allergy Severe Fainting Verified 12/16/19 18:36 Home Meds: Home Meds Magnesium Oxide [Magnesium] 500 mg PO DAILY 06/13/18 [History] Multivitamin [Multi-Day Vitamins] 1 tab PO DAILY 06/13/18 [History] Naproxen Sodium 600 mg PO ASDIRECTED 06/13/18 [History] Rizatriptan Benzoate [Rizatriptan] 10 mg PO ASDIRECTED PRN 06/13/18 [History] hydrOXYzine HCL [Atarax] 25 mg PO ASDIRECTED PRN 12/29/18 [History] DULoxetine [Cymbalta] 30 mg PO DAILY 05/08/19 [History] Past Medical History HEENT History: Reports: Impaired Vision, Other (See Below) Other HEENT History: wears eyeglasses. Caps to front teeth. 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 No endometriosis was found. Neurological History: Reports: Migraines Psychiatric History: Reports: Depression Hematologic History: Reports: Anemia - Past Surgical History GI Surgical History: Reports: Other (See Below) Other GI Surgeries/Procedures: laparoscopy Female Surgical History: Reports: Other (See Below) Other Female Surgeries/Procedures: ovarian cysts, PMDD Social & Family History - Family History Family Medical History: Noncontributory - Tobacco Use Smoking Status *Q: Never Smoker Second Hand Smoke Exposure: No - Caffeine Use Caffeine Use: Reports: Coffee, Energy Drinks, Soda, Tea Caffeine Use Comment: on occasion - Recreational Drug Use Recreational Drug Use: No - Living Situation & Occupation Living situation: Reports: Occupation: Unemployed ED ROS GENERAL - Review of Systems Review Of Systems: Comprehensive ROS is negative, except as noted in HPI. - Physical Exam Exam: See Below Exam Limited By: No Limitations General Appearance: Alert, WD/WN, No Apparent Distress Eye Exam: Bilateral Eye: EOMI, Normal Inspection, PERRL Ears: Normal External Exam Nose: Normal Inspection Throat/Mouth: Normal Inspection Head Exam: Atraumatic, Normocephalic Neck: Normal Inspection, Supple, Non-Tender, Full Range of Motion Respiratory/Chest: No Respiratory Distress, Lungs Clear, Normal Breath Sounds, No Accessory Muscle Use, Chest Non-Tender Cardiovascular: Normal Peripheral Pulses, Regular Rate, Rhythm, No Murmur GI/Abdominal: Normal Bowel Sounds, Soft, Non-Tender, No Distention, No Mass Neuro Exam (Abbreviated): Alert, Oriented, Normal Cognition, No Motor/Sensory Deficits Extremities: Normal Inspection, Normal Capillary Refill Psychiatric: Normal Affect, Normal Mood Skin Exam: Warm, Dry, Intact, Normal Color, No Rash Course - Vital Signs Last Recorded V/S: Last Vital Signs Temp 97.8 F 12/16/19 18:30 Pulse 89 07/02/20 18:30 Resp 20 12/16/19 18:30 BP 116/81 12/16/19 18:30 Pulse Ox 96 12/16/19 18:30 - Orders/Labs/Meds Orders: Active Orders 24 hr Category Date Time Status Peripheral IV Care [RC] . DIRECTED Care 12/16/19 18:47 Ordered Sodium Chloride 0.9% [Saline Flush] Med 12/16/19 18:47 Ordered 10 ml FLUSH ASDIRECTED PRN Peripheral IV Insertion Adult [OM.PC] Routine Oth 12/16/19 18:47 Ordered Medication Orders Sodium Chloride (Saline Flush) 10 ml FLUSH ASDIRECTED PRN PRN Reason: Keep Vein Open Last Admin: 12/16/19 19:45 Dose: 10 ml Documented by: Meds: Medications Generic Name Dose Route Start Last Admin Trade Name Freq PRN Reason Stop Dose Admin Sodium Chloride 10 ml 12/16/19 18:47 12/16/19 19:45 Saline Flush FLUSH 10 ml ASDIRECTED PRN Administration Keep Vein Open Discontinued Medications Generic Name Dose Route Start Last Admin Trade Name Freq PRN Reason Stop Dose Admin Dexamethasone 4 mg 12/16/19 18:48 12/16/19 19:07 Dexamethasone IM 12/16/19 18:49 Not Given ONETIME ONE Dexamethasone 4 mg 12/16/19 18:48 12/16/19 19:04 Dexamethasone IVPUSH 12/16/19 18:49 4 mg ONETIME ONE Administration Diphenhydramine HCl 25 mg 12/16/19 18:47 12/16/19 19:02 Benadryl IVPUSH 12/16/19 18:48 25 mg ONETIME ONE Administration Sodium Chloride 1,000 mls @ 999 mls/hr 12/16/19 18:47 12/16/19 19:01 Normal Saline IV 12/16/19 19:47 999 mls/hr ASDIRECTED ONE Administration Ketorolac Tromethamine 30 mg 12/16/19 18:47 12/16/19 19:02 Toradol IVPUSH 12/16/19 18:48 30 mg ONETIME ONE Administration Ondansetron HCl 4 mg 12/16/19 18:48 12/16/19 19:02 Zofran IVPUSH 12/16/19 18:49 4 mg ONETIME ONE Administration - Re-Assessments/Exams Free Text/Narrative Re-Assessment/Exam: 12/16/19 18:59 Patient presents to the ED for her migraine, she will have an IV placed with some IV fluids, 30 mg Toradol, 4 mg dexamethasone, 4 mg Zofran, and 25 mg Benadryl for initial management. 12/16/19 20:24 Patient has been reassessed at bedside, and states her headache is much better and she is ready to go home at this time. Will discharge home with general recommendations. Departure - Departure Time of Disposition: 20:24 Disposition: Home, Self-Care 01 Condition: Good Clinical Impression: Migraine Qualifiers: Migraine type: other Status migrainosus presence: without status migrainosus Intractability: not intractable Qualified Code(s): G43.809 - Other migraine, not intractable, without status migrainosus - Discharge Information *PRESCRIPTION DRUG MONITORING PROGRAM REVIEWED*: No *COPY OF PRESCRIPTION DRUG MONITORING REPORT IN PATIENT OLIVA: No Instructions: Migraine Headache, [id number] Referrals: Bernie Catalan PA-C [Primary Care Provider] - Forms: ED Department Discharge Additional Instructions: You were evaluated in the ED for your headache. You were given a combination of medications and IV fluid for management. This did seem to provide you pretty good relief of your symptoms. Recommend that you go home and rest in a quiet, darkened room. Try also to keep well hydrated. Please return to the ED if your symptoms should change or worsen. Sepsis Event Note (ED) - Evaluation Sepsis Screening Result: No Definite Risk - Focused Exam Vital Signs: Vital Signs Temp Pulse Resp BP Pulse Ox 12/16/19 18:30 97.8 F 89 20 116/81 96 - My Orders Last 24 Hours: My Active Orders 12/16/19 18:47 Peripheral IV Care [RC] . DIRECTED Sodium Chloride 0.9% [Saline Flush] 10 ml FLUSH ASDIRECTED PRN Peripheral IV Insertion Adult [OM.PC] Routine - Assessment/Plan Last 24 Hours: My Active Orders 12/16/19 18:47 Peripheral IV Care [RC] . DIRECTED Sodium Chloride 0.9% [Saline Flush] 10 ml FLUSH ASDIRECTED PRN Peripheral IV Insertion Adult [OM.PC] Routine
== END 2019-12-16 20:38 | disposition home or self-care (01) ==
LOC: JD.ED 18:21
DX: G43.809 Other migraine, not intractable, without status migrainosus (principal); F32.9 Major depressive disorder, single episode, unspecified; Z79.899 Other long term (current) drug therapy; Z88.6 Allergy status to analgesic agent; Z88.1 Allergy status to other antibiotic agents; Z88.5 Allergy status to narcotic agent; Z88.8 Allergy status to other drugs, medicaments and biological substances
CPT/HCPCS: 96374; 96375; 99283; J1100; J1200; J1885; J2405; J7030

== ENCOUNTER 2019-12-22 20:09 | Emergency (ER) | payer BC, MEDICARE ==
[2019-12-23] MEDS ORDERED: Lactated Ringers 1,000 ML IV ONE (00:40)
[2019-12-23] MEDS ORDERED: Ondansetron 4 MG/2 ML SDV IVPUSH ONE (00:40)
--- NOTE | 2019-12-23 00:41 | EDM.PDOC ---
ED HPI GENERAL MEDICAL PROBLEM - General Chief Complaint: General Stated Complaint: HEADACHE/NAUSEA Time Seen by Provider: 12/23/19 00:01 Source of Information: Reports: Patient History Limitations: Reports: No Limitations - History of Present Illness INITIAL COMMENTS - FREE TEXT/NARRATIVE: Mrs. Luna is a very pleasant 34-year-old woman with a past medical history significant for migraines, who now presents to the ED stating that she has had a headache since last 12/15/2019, that developed after she fell and struck her head. She also reports feeling somewhat lightheaded and slightly vertiginous, nauseated, with increased fatigue since 12/20/2019. She has then been experiencing right flank pain on and off today. She states that her current headache is not the same as her usual migraine. She ordinarily takes Rashad triptan up to 3 times a month to treat her migraines, and took one last night, which did not help her headache. She has also been taking Fioricet with codeine, however, this has caused her to have nausea. She took Zofran, Pepto- Bismol, and Benadryl for her nausea, however, these have not been adequate. Here in the ED, the patient is found to be hemodynamically stable, afebrile, saturating 100% on room air. Other than the above symptoms, the patient reports that she has chronic constipation and recurrent nausea and headaches. Otherwise, the patient denies recent fever, chills, sore throat, ear pain, nasal or sinus congestion, cough, dyspnea, chest pain, palpitations, vomiting, diarrhea, abdominal pain, urinary symptoms, recent weight gain or weight loss, recent bloody bowel movements or black bowel movements, recent joint aches, or rashes. The patient's PCP is CARROLL Ball. She is scheduled to meet the Neurologist Dr. Francis Hanson on 02/25/2020. Head Pain Score (Numeric/FACES): 5 - Related Data Allergies Allergy/AdvReac Type Severity Reaction Status Date / Time fentanyl Allergy Severe Chest Pain Verified 12/22/19 21:12 levofloxacin [From Levaquin] Allergy Severe Hives Verified 12/22/19 21:12 metoclopramide [From Reglan] Allergy Severe Anxiety Verified 12/22/19 21:12 morphine Allergy Severe Headache Verified 12/22/19 21:12 promethazine [From Phenergan] Allergy Severe Anxiety Verified 12/22/19 21:12 sumatriptan [From Imitrex] Allergy Severe Chest Pain Verified 12/22/19 21:12 topiramate [From Topamax] Allergy Severe Fainting Verified 12/22/19 21:12 Home Meds: Home Meds Magnesium Oxide [Magnesium] 500 mg PO DAILY 06/13/18 [History] Multivitamin [Multi-Day Vitamins] 1 tab PO DAILY 06/13/18 [History] Naproxen Sodium 600 mg PO ASDIRECTED 06/13/18 [History] Rizatriptan Benzoate [Rizatriptan] 10 mg PO ASDIRECTED PRN 06/13/18 [History] hydrOXYzine HCL [Atarax] 25 mg PO ASDIRECTED PRN 06/13/18 [History] DULoxetine [Cymbalta] 30 mg PO DAILY 05/08/19 [History] Acetam/Butalbital/Caffeine/Cod [Fioricet/Codeine [id number] MG] 1 cap PO ASDIRECTED PRN 12/22/19 [History] Past Medical History HEENT History: Reports: Impaired Vision (wears glasses) 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: , Other (See Below) (Ovarian cysts) Neurological History: Reports: Migraines Psychiatric History: Reports: Depression - Past Surgical History Female Surgical History: Reports: Other (See Below) (Exploratory laparoscopy for endometriosis -> none found) Social & Family History - Family History Family Medical History: Noncontributory - Tobacco Use Smoking Status *Q: Never Smoker - Caffeine Use Caffeine Use: Reports: Coffee Caffeine Use Comment: on occasion - Alcohol Use Alcohol Use History: No - Recreational Drug Use Recreational Drug Use: Yes Drug Use in Last 12 Months: No Recreational Drug Type: Reports: Marijuana/Hashish (last smoked 2017) - Living Situation & Occupation Living situation: Reports: , with Spouse, with Family (3 kids) Occupation: Unemployed ED ROS GENERAL - Review of Systems Review Of Systems: Comprehensive ROS is negative, except as noted in HPI. ED EXAM, GENERAL - Physical Exam Exam: See Below Exam Limited By: No Limitations General Appearance: Alert, WD/WN, No Apparent Distress Eye Exam: Bilateral Eye: EOMI, Normal Inspection, PERRL Ears: Normal External Exam, Normal Canal, Hearing Grossly Normal, Normal TMs Nose: Normal Inspection, Normal Mucosa, No Blood Throat/Mouth: Normal Inspection, Normal Lips, Normal Teeth, Normal Gums, Normal Oropharynx, Normal Voice, No Airway Compromise Head: Atraumatic, Normocephalic Neck: Normal Inspection, Supple, Non-Tender, Full Range of Motion. No: Lymphadenopathy (L), Lymphadenopathy (R) Respiratory/Chest: No Respiratory Distress, Lungs Clear, Normal Breath Sounds, No Accessory Muscle Use Cardiovascular: Normal Peripheral Pulses, Regular Rate, Rhythm, No Edema, No Gallop, No JVD, No Murmur, No Rub Peripheral Pulses: 3+: Radial (L), Radial (R) GI/Abdominal: Normal Bowel Sounds, Soft, Non-Tender, No Organomegaly, No Distention, No Abnormal Bruit, No Mass (Female) Exam: Deferred Rectal (Female) Exam: Deferred Back Exam: Normal Inspection, Full Range of Motion, CVA Tenderness (R). No: CVA Tenderness (L) Extremities: Normal Inspection, Normal Range of Motion, No Pedal Edema, Normal Capillary Refill Neurological: Alert, Oriented, CN II-XII Intact, Normal Cognition, No Motor/Sensory Deficits Psychiatric: Normal Affect Skin Exam: Warm, Dry, Intact, Normal Color, No Rash Course - Vital Signs Last Recorded V/S: Last Vital Signs Temp 36.6 C 12/22/19 21:09 Pulse 76 12/22/19 21:09 Resp 16 12/22/19 21:09 BP 110/82 12/22/19 21:09 Pulse Ox 100 12/22/19 21:09 Orthostatic Blood Pressure [ 124/92 Standing] Orthostatic Blood Pressure [ 112/79 Supine] - Orders/Labs/Meds Orders: Active Orders 24 hr Category Date Time Status Orthostatic Vital Signs [RC] STAT Care 12/23/19 00:40 Active Abdomen Pelvis wo Cont [CT] Stat Exams 12/23/19 00:39 Taken Head wo Cont [CT] Stat Exams 12/23/19 00:36 Taken Labs: Laboratory Tests 12/23/19 12/23/19 12/23/19 Range/Units 00:49 00:49 00:55 WBC 7.11 (3.98-10.04) K/mm3 RBC 4.64 (3.98-5.22) M/mm3 Hgb 13.7 D (11.2-15.7) gm/dl Hct 42.1 (34.1-44.9) % MCV 90.7 D (79.4-94.8) fl MCH 29.5 (25.6-32.2) pg MCHC 32.5 (32.2-35.5) g/dl RDW Std Deviation 43.6 (36.4-46.3) fL Plt Count 258 (182-369) K/mm3 MPV 10.5 (9.4-12.3) fl Neutrophils % (Manual) 57 (40-60) % Band Neutrophils % 1 (0-10) % Lymphocytes % (Manual) 37 (20-40) % Atypical Lymphs % 0 % Monocytes % (Manual) 4 (2-10) % Eosinophils % (Manual) 1 (0.7-5.8) % Basophils % (Manual) 0 L (0.1-1.2) Platelet Estimate Adequate RBC Morph Comment Normal Sodium 141 (136-145) mEq/L Potassium 4.1 (3.5-5.1) mEq/L Chloride 104 (98-107) mEq/L Carbon Dioxide 28 (21-32) mEq/L Anion Gap 13.1 (5-15) BUN 11 (7-18) mg/dL Creatinine 0.9 (0.55-1.02) mg/dL Est Cr Clr Drug Dosing 69.66 mL/min Estimated GFR (MDRD) > 60 (>60) mL/min BUN/Creatinine Ratio 12.2 L (14-18) Glucose 100 (74-106) mg/dL Calcium 8.7 (8.5-10.1) mg/dL Magnesium 2.1 (1.8-2.4) mg/dl Total Bilirubin 0.2 (0.2-1.0) mg/dL AST 18 (15-37) U/L ALT 25 (14-59) U/L Alkaline Phosphatase 54 (46-116) U/L Total Protein 7.2 (6.4-8.2) g/dl Albumin 3.8 (3.4-5.0) g/dl Globulin 3.4 gm/dL Albumin/Globulin Ratio 1.1 (1-2) Urine Color Yellow (Yellow) Urine Appearance Clear (Clear) Urine pH 7.5 (5.0-8.0) Ur Specific [place] 1.025 (1.005-1.030) Urine Protein Negative (Negative) Urine Glucose (UA) Negative (Negative) Urine Ketones Negative (Negative) Urine Occult Blood Negative (Negative) Urine Nitrite Negative (Negative) Urine Bilirubin Negative (Negative) Urine Urobilinogen 0.2 (0.2-1.0) Ur Leukocyte Esterase Negative (Negative) Urine RBC 0-5 (0-5) /hpf Urine WBC 0-5 (0-5) /hpf Ur Squamous Epith Cells 5-10 H (0-5) /hpf Urine Bacteria Few (FEW) /hpf Urine Mucus Few (FEW) /hpf Urine HCG, Qual (NEGATIVE) 12/23/19 Range/Units 00:55 WBC (3.98-10.04) K/mm3 RBC (3.98-5.22) M/mm3 Hgb (11.2-15.7) gm/dl Hct (34.1-44.9) % MCV (79.4-94.8) fl MCH (25.6-32.2) pg MCHC (32.2-35.5) g/dl RDW Std Deviation (36.4-46.3) fL Plt Count (182-369) K/mm3 MPV (9.4-12.3) fl Neutrophils % (Manual) (40-60) % Band Neutrophils % (0-10) % Lymphocytes % (Manual) (20-40) % Atypical Lymphs % % Monocytes % (Manual) (2-10) % Eosinophils % (Manual) (0.7-5.8) % Basophils % (Manual) (0.1-1.2) Platelet Estimate RBC Morph Comment Sodium (136-145) mEq/L Potassium (3.5-5.1) mEq/L Chloride (98-107) mEq/L Carbon Dioxide (21-32) mEq/L Anion Gap (5-15) BUN (7-18) mg/dL Creatinine (0.55-1.02) mg/dL Est Cr Clr Drug Dosing mL/min Estimated GFR (MDRD) (>60) mL/min BUN/Creatinine Ratio (14-18) Glucose (74-106) mg/dL Calcium (8.5-10.1) mg/dL Magnesium (1.8-2.4) mg/dl Total Bilirubin (0.2-1.0) mg/dL AST (15-37) U/L ALT (14-59) U/L Alkaline Phosphatase (46-116) U/L Total Protein (6.4-8.2) g/dl Albumin (3.4-5.0) g/dl Globulin gm/dL Albumin/Globulin Ratio (1-2) Urine Color (Yellow) Urine Appearance (Clear) Urine pH (5.0-8.0) Ur Specific [place] (1.005-1.030) Urine Protein (Negative) Urine Glucose (UA) (Negative) Urine Ketones (Negative) Urine Occult Blood (Negative) Urine Nitrite (Negative) Urine Bilirubin (Negative) Urine Urobilinogen (0.2-1.0) Ur Leukocyte Esterase (Negative) Urine RBC (0-5) /hpf Urine WBC (0-5) /hpf Ur Squamous Epith Cells (0-5) /hpf Urine Bacteria (FEW) /hpf Urine Mucus (FEW) /hpf Urine HCG, Qual Negative (NEGATIVE) Meds: Medications Discontinued Medications Generic Name Dose Route Start Last Admin Trade Name Yris PRN Reason Stop Dose Admin Lactated Ringer's 1,000 mls @ 999 mls/hr 12/23/19 00:40 12/23/19 00:51 Ringers, Lactated IV 12/23/19 01:40 999 mls/hr .BOLUS ONE Administration Ketorolac Tromethamine 30 mg 12/23/19 02:54 12/23/19 03:04 Toradol IVPUSH 12/23/19 02:55 30 mg ONETIME STA Administration Ondansetron HCl 4 mg 12/23/19 00:40 12/23/19 00:51 Zofran IVPUSH 12/23/19 00:41 4 mg ONETIME ONE Administration - Re-Assessments/Exams Free Text/Narrative Re-Assessment/Exam: 12/23/19 00:41 As above, the patient who suffers from recurrent headaches, has had a headache that has not significantly improved since Friday night, after she struck her head when she fell. She has also been experiencing lightheadedness, slight vertigo, nausea, and increased fatigue since 12/20/2019, and right flank pain on and off today. No urinary symptoms. Her physical exam is remarkable for right CVA tenderness, and otherwise unremarkable. Her neurologic exam is completely normal. I have ordered a work-up that includes orthostatics, blood work, a urinalysis, a urine test, and a CT scan of the head without contrast, and a CT scan of the abdomen and pelvis without contrast, to look for a right ureterolith. In the meantime, the patient will be given IV fluid and IV Zofran. She would prefer not to take metoclopramide or promethazine. 12/23/19 02:23 The patient is not orthostatic. Her CBC is unremarkable. Her CMP is unremarkable. Her magnesium level is within normal limits at 2.1. Her urinalysis is unremarkable. Her urine test is negative. 12/23/19 02:48 CT of the head without contrast is read by [facility] as "No acute intracranial abnormality." CT of the abdomen and pelvis without contrast is read by [facility] as: 1. Moderate to large amount of colonic feces. 2. Prominence of the right collecting system without discrete obstructing calculus. 12/23/19 02:53 Test results discussed with the patient. The CT of her abdomen and pelvis indicates that she may have an anatomic ureteral stricture, therefore I would like to refer her to a Urologist for evaluation. In the meantime, however, the patient states that her headache has gotten worse. She is requesting IV Toradol, which I have ordered. 12/23/19 03:43 After Toradol, the patient states that she is feeling much better. I will discharge her home with a CD-ROM of the CT scan of her abdomen pelvis that she can take to the Urologist when she follows up. Departure - Departure Time of Disposition: 03:44 Disposition: Home, Self-Care 01 Condition: Good Clinical Impression: Headache, Ureteral stricture, right - Discharge Information *PRESCRIPTION DRUG MONITORING PROGRAM REVIEWED*: Not Applicable *COPY OF PRESCRIPTION DRUG MONITORING REPORT IN PATIENT OLIVA: Not Applicable Referrals: Bernie Catalan PA-C [Primary Care Provider] - Francis Hanson MD [Ordering Only Provider] - Robert Bae MD [Ordering Only Provider] - Forms: ED Department Discharge Additional Instructions: You were seen in the emergency room for a headache since 12/15/2019, after you fell and struck your head, along with more recent dizziness, nausea, increased fatigue, and right flank pain. Work-up in the ER included blood work, a urinalysis, a urine test, a CT scan of your head without contrast, a CT scan of your abdomen and pelvis without contrast, and positional blood pressure checks. Your blood work, urine studies, positional blood pressure checks, and the CT scan of your head were completely normal, however, the CT scan of your abdomen and pelvis found a prominence of the right collecting system without a discrete obstructing calculus. This is concerning for a ureteral stricture. We recommend that you follow-up with the Urologist Dr. Robert Bae, in [place], at the next available appointment. Make sure that the ict analyst knows that you are following up from the ER. A CD-ROM of the images of the CT of your abdomen and pelvis has been provided to you. Take the CD-ROM with you when you see Dr. Bae. If any other problems, please do not hesitate to return to the ER. Sepsis Event Note (ED) - Evaluation Sepsis Screening Result: No Definite Risk - Focused Exam Vital Signs: Vital Signs Temp Pulse Resp BP Pulse Ox 12/22/19 21:09 36.6 C 76 16 110/82 100 - My Orders Last 24 Hours: My Active Orders 12/23/19 00:36 Head wo Cont [CT] Stat 12/23/19 00:39 Abdomen Pelvis wo Cont [CT] Stat 12/23/19 00:40 Orthostatic Vital Signs [RC] STAT - Assessment/Plan Last 24 Hours: My Active Orders 12/23/19 00:36 Head wo Cont [CT] Stat 12/23/19 00:39 Abdomen Pelvis wo Cont [CT] Stat 12/23/19 00:40 Orthostatic Vital Signs [RC] STAT
[2019-12-23] MEDS ORDERED: Ketorolac 30 MG/ML SDV IVPUSH STA (02:54)
--- NOTE | 2019-12-23 07:58 | CT ---
CT abdomen and pelvis Technique: Multiple axial sections were obtained from above the dome of the diaphragm inferiorly through the pubic symphysis. Intravenous and oral contrast not utilized. Study has been performed as a ureteral stone protocol. Findings: Visualized lung bases show nothing acute. Noncontrast appearance of the liver shows no discrete abnormality. Spleen appears within normal limits. Adrenal glands show no nodule. Kidneys show no abnormal calcifications. No ureteral dilatation or ureteral calcifications are seen. Pancreas shows no discrete abnormality. Gallbladder contains no calcified gallstones. Aorta shows no aneurysm. No retroperitoneal adenopathy or mesenteric abnormalities are seen. IUD is present within the uterus. Mild increased stool is noted throughout the colon. Bone window settings were reviewed which appear within normal limits for the patient's age. No acute osseous finding is appreciated. Impression: 1. No renal calculi, ureteral dilatation or ureteral stone is seen. 2. Mild increased stool within the colon. 3. No acute finding is appreciated on noncontrast CT study of the abdomen and pelvis. Diagnostic code #2 This report was dictated in MDT I agree with preliminary report from [facility], finalized on 12/23/19, 3:41 AM Central Daylight Time
--- NOTE | 2019-12-23 08:01 | CT ---
Head CT Technique: Multiple axial sections through the brain were obtained. Intravenous contrast was not utilized. Comparison: Prior head CT study of 05/08/19 is available. Findings: Ventricles along with basal cisterns and sulci over the convexities are mildly prominent. No abnormal parenchymal densities are seen. No evidence of intracranial hemorrhage. No midline shift or mass-effect is seen. Bone window settings were reviewed which show the visualized paranasal sinuses and mastoid sinuses to appear without acute finding. No acute abnormality is identified within the calvarium. Impression: 1. Mild generalized atrophy which is stable from prior exam. 2. No acute intracranial abnormality is appreciated. Diagnostic code #2 This report was dictated in MDT I agree with preliminary report from [facility], finalized on 12/23/19, 3:43 AM Central Daylight Time
== END 2019-12-23 03:57 | disposition home or self-care (01) ==
LOC: JD.ED 20:09
DX: R51 Headache (principal); N13.5 Crossing vessel and stricture of ureter without hydronephrosis; F32.9 Major depressive disorder, single episode, unspecified; Z79.899 Other long term (current) drug therapy; Z88.6 Allergy status to analgesic agent; Z88.4 Allergy status to anesthetic agent; Z88.1 Allergy status to other antibiotic agents; Z88.5 Allergy status to narcotic agent; Z88.8 Allergy status to other drugs, medicaments and biological substances
CPT/HCPCS: 36415; 70450; 74176; 80053; 81001; 81025; 83735; 85007; 85027; 96361; 96374; 96375; 99284; J1885; J2405; J7120